=== PATIENT | male | born 1950 | race African-American/Black ===

== ENCOUNTER 2017-07-14 13:29 | Emergency (ER) | payer BC, MEDICAID ==
[~2017-07-14] VITALS: Ht 180.3 cm; Wt 90.0 kg
[2017-07-14] MEDS ORDERED: TACR.5 PO (13:51)
[2017-07-14] MEDS ORDERED: ATOR40TA28 PO (13:51)
[2017-07-14] MEDS ORDERED: HYDR-2924 PO (13:51)
[2017-07-14] MEDS ORDERED: ASPI81 PO (13:51)
[2017-07-14] MEDS ORDERED: TADA5TAB3 PO (13:51)
[2017-07-14] MEDS ORDERED: ENTE0.5T4 PO (13:51)
[2017-07-14] MEDS ORDERED: LOSA50TA37 PO (13:51)
[2017-07-14] MEDS ORDERED: FERR-89 PO (13:51)
[2017-07-14] MEDS ORDERED: URSO300C4 PO (13:51)
[2017-07-14] MEDS ORDERED: FURO40 PO (13:51)
[2017-07-14] MEDS ORDERED: MYCO250C7 PO (13:51)
[2017-07-14] MEDS ORDERED: ISOS60TA4 PO (13:51)
[2017-07-14] MEDS ORDERED: LISI-660 PO (13:51)
[2017-07-14] MEDS ORDERED: SIRO1 PO (13:51)
[2017-07-14] MEDS ORDERED: AMLO-512 PO (13:51)
[2017-07-14 16:36] VITALS: BP 191/85
== END 2017-07-14 17:00 | disposition home or self-care (01) ==
LOC: EMS 13:31
DX: I10 Essential (primary) hypertension (principal)
CPT/HCPCS: 93005; 99283

== ENCOUNTER 2018-05-17 10:05 | Emergency (ER) | payer BC, MEDICAID ==
[~2018-05-17] VITALS: Ht 180.3 cm; Wt 81.0 kg
[~2018-05-17 10:05] MED LIST: AMLO-512 PO; ASPI81 PO; ATOR40TA28 PO; ENTE0.5T4 PO; FERR-89 PO; FURO40 PO; HYDR-2924 PO; ISOS60TA4 PO; LISI-660 PO; LOSA50TA64 PO; MYCO250C7 PO; SIRO1 PO; TACR.5 PO; TADA5TAB3 PO; URSO300C4 PO
[2018-05-17 10:29] LABS: GLUCOSE,POINT OF CARE 84 MG/DL (70-110)
[2018-05-17 12:16] LABS: BASOPHILS % (AUTO) 0.8 % (0.0-2.0); HEMATOCRIT 33.9 % (41-53); HEMOGLOBIN 10.6 g/dL (13.5-17.5); LYMPHOCYTES # (AUTO) 1.4 K/uL (1.0-4.8); LYMPHOCYTES % (AUTO) 26.3 % (22.0-44.0); MEAN CORPUSCULAR HEMOGLOBIN 25.2 pg (26.0-34.0); MEAN CORPUSCULAR HGB CONC 31.1 G/dL (31.0-37.0); MEAN CORPUSCULAR VOLUME 81 fL (80-100); MONOCYTES # (AUTO) 0.4 K/uL (0.1-1.0); MONOCYTES % (AUTO) 8.5 % (2.0-9.0); NEUTROPHILS # (AUTO) 3.2 K/uL (1.8-7.7); NEUTROPHILS % (AUTO) 62.4 % (40.0-70.0); PLATELET COUNT (AUTO) 140 K/uL (150-450); RED BLOOD CELL COUNT(AUTO) 4.19 MIL/uL (4.50-5.90); RED CELL DISTRIBUTION WIDTH 15.4 % (11.5-14.5)
[2018-05-17] MEDS ORDERED: KETOROLAC TROMETHAMINE 30 MG/ML VIAL IM ONE (12:45)
[2018-05-17] MEDS ORDERED: TraMADol HCL 50 MG TABLET PO ONE (13:45)
[2018-05-17 14:30] VITALS: BP 142/88
== END 2018-05-17 14:33 | disposition home or self-care (01) ==
LOC: EMS 10:06
DX: S93.402A Sprain of unspecified ligament of left ankle, initial encounter (principal); M19.071 Primary osteoarthritis, right ankle and foot; I10 Essential (primary) hypertension; E78.00 Pure hypercholesterolemia, unspecified; Z79.899 Other long term (current) drug therapy; X58.XXXA Exposure to other specified factors, initial encounter; Y93.89 Activity, other specified; Y92.89 Other specified places as the place of occurrence of the external cause; Y99.8 Other external cause status
CPT/HCPCS: 29515; 36415; 73610; 73630; 82962; 84550; 85025; 96372; 99284; J1885

== ENCOUNTER 2018-09-14 08:48 | Emergency (ER) | payer BC, MEDICAID ==
[~2018-09-14] VITALS: Ht 180.3 cm; Wt 86.4 kg
[~2018-09-14 08:48] MED LIST changes: -ASPI81 PO
[2018-09-14 08:57] VITALS: BP 141/75
[2018-09-14] MEDS ORDERED: VITA1CAP PO (09:07)
== END 2018-09-14 10:03 | disposition left against medical advice (07) ==
LOC: EMS 08:48
DX: Z53.21 Procedure and treatment not carried out due to patient leaving prior to being seen by health care provider (principal)

== ENCOUNTER 2018-09-14 13:08 | Emergency (ER) | payer BC, MEDICAID ==
[~2018-09-14] VITALS: Ht 180.3 cm; Wt 86.4 kg
[~2018-09-14 13:08] MED LIST changes: +VITA1CAP PO
[2018-09-14] MEDS ORDERED: LIDOCAINE 2% VISCOUS 15 ML SOLUTION UDCUP PO ONE (14:00)
[2018-09-14] MEDS ORDERED: ACETAMINOPHEN 325 MG TABLET PO ONE (14:00)
[2018-09-14 15:02] VITALS: BP 126/69
== END 2018-09-14 15:06 | disposition home or self-care (01) ==
LOC: EMS 13:09
DX: J02.9 Acute pharyngitis, unspecified (principal); I12.9 Hypertensive chronic kidney disease with stage 1 through stage 4 chronic kidney disease, or unspecified chronic kidney disease; N18.9 Chronic kidney disease, unspecified; Z94.0 Kidney transplant status; Z79.899 Other long term (current) drug therapy
CPT/HCPCS: 87430

== ENCOUNTER 2019-10-24 20:42 | Emergency (ER) | payer OTHER ==
[~2019-10-24] VITALS: Ht 180.3 cm; Wt 90.9 kg
[~2019-10-24 20:42] MED LIST changes: -AMLO-512 PO; +AMLO10TA7 PO; -FERR-89 PO; -ISOS60TA4 PO; +LOSA50TA37 PO; -LOSA50TA64 PO; +MYCO250C27 PO; -MYCO250C7 PO
[2019-10-25] MEDS ORDERED: ACETAMINOPHEN 500 MG TABLET PO ONE (02:00)
[2019-10-25] MEDS ORDERED: IBUPROFEN 400 MG TABLET PO ONE (02:00)
[2019-10-25] MEDS ORDERED: CEPHALEXIN MONOHYDRATE 500 MG CAPSULE PO ONE (04:15)
[2019-10-25 04:22] VITALS: BP 138/80
== END 2019-10-25 04:23 | disposition home or self-care (01) ==
LOC: EMS 20:43
DX: L03.032 Cellulitis of left toe (principal); I12.9 Hypertensive chronic kidney disease with stage 1 through stage 4 chronic kidney disease, or unspecified chronic kidney disease; N18.9 Chronic kidney disease, unspecified; E78.00 Pure hypercholesterolemia, unspecified; Z91.040 Latex allergy status

== ENCOUNTER 2019-10-27 16:30 | Emergency (ER) | payer OTHER ==
[~2019-10-27] VITALS: Ht 180.3 cm; Wt 90.9 kg
[~2019-10-27 16:30] MED LIST changes: -LISI-660 PO; -MYCO250C27 PO
[2019-10-27] MEDS ORDERED: COLCHICINE 0.6 MG TABLET PO ONE (17:15)
[2019-10-27] MEDS ORDERED: ACETAMINOPHEN 500 MG TABLET PO ONE (17:15)
[2019-10-27] MEDS ORDERED: IBUPROFEN 600 MG TABLET PO ONE (17:15)
[2019-10-27] MEDS ORDERED: TADA20TA43 PO (17:19)
[2019-10-27] MEDS ORDERED: ISOS60TA4 PO (17:19)
[2019-10-27] MEDS ORDERED: SIRO0.5T3 PO (17:19)
[2019-10-27 19:00] VITALS: BP 154/83
== END 2019-10-27 18:50 | disposition home or self-care (01) ==
LOC: EMS 16:30
DX: M10.9 Gout, unspecified (principal); I10 Essential (primary) hypertension; E78.00 Pure hypercholesterolemia, unspecified; Z79.899 Other long term (current) drug therapy

== ENCOUNTER 2020-12-29 21:01 | Emergency (ER) | payer MEDICARE, MEDICAID ==
[~2020-12-29] VITALS: Ht 180.3 cm; Wt 94.5 kg
[~2020-12-29 21:01] MED LIST changes: +AMLO-258 PO; -AMLO10TA7 PO; +ENTE0.5T12 PO; -ENTE0.5T4 PO; -HYDR-2924 PO; +HYDR50TA36 PO; +ISOS60TA77 PO; +SIRO0.5T3 PO; -SIRO1 PO; -TACR.5 PO; +TACR0.5C21 PO; +TADA20TA43 PO; -TADA5TAB3 PO
[2020-12-29 21:16] VITALS: BP 150/85
[2020-12-29 21:56] LABS: APPEARANCE,URINE TURBID (CLEAR); BILIRUBIN,URINE NEGATIVE (NEGATIVE); GLUCOSE, URINE (UA) NEGATIVE (NEGATIVE); KETONES,URINE NEGATIVE (NEGATIVE); LEUKOCYTE ESTERASE ,URINE NEGATIVE (NEGATIVE); NITRATE,URINE NEGATIVE (NEGATIVE); OCCULT BLOOD,URINE NEGATIVE (NEGATIVE); PROTEIN,URINE SEE CONFIRM (NEGATIVE); UROBILINOGEN,URINE 0.2 mg/dL (<=1.0)
[2020-12-29 22:13] LABS: SULFOSALICYLIC ACID,URINE 2+ (Negative)
[2020-12-29 22:20] LABS: SQUAMOUS EPITHELIAL CELL,UR Rare /LPF (None Seen)
[2020-12-29 22:21] LABS: BACTERIA,URINE None Seen /HPF (None Seen); RBC,URINE None Seen /HPF (0-2); WBC,URINE 0-2 /HPF (0-5)
== END 2020-12-29 23:35 | disposition left against medical advice (07) ==
LOC: EMS 21:03
DX: R20.0 Anesthesia of skin (principal); Z53.21 Procedure and treatment not carried out due to patient leaving prior to being seen by health care provider
CPT/HCPCS: 81001; 81002; 81003

== ENCOUNTER → 2021-03-02 | Emergency (ER) | payer MEDICARE, MEDICAID ==
[~2021-03-02] VITALS: Ht 180.3 cm; Wt 94.5 kg
[~2021-03-02] MED LIST changes: +HYDROmorphone 2 MG/ML VIAL IVP ONE; +HYDROmorphone 2 MG/ML VIAL IVP PRN; +LORazepam 2 MG/ML VIAL IVP ONE; +MORPHINE SULFATE 4 MG/ML SYRINGE IVP ONE; +ONDANSETRON HCL 4 MG/2 ML VIAL IVP ONE; +PHENAZOPYRIDINE HCL 100 MG TABLET PO ONE; +SODIUM CHLORIDE 0.9% 1,000 ML IV ONE; +TACROLIMUS 0.5 MG CAPSULE PO ONE
[2021-03-02 18:32] LABS: BASOPHILS % (AUTO) 1.2 % (0.0-2.0); EOSINOPHILS % (AUTO) 1.1 % (1.0-6.0); HEMATOCRIT 34.1 % (41-53); HEMOGLOBIN 10.9 g/dL (13.5-17.5); LYMPHOCYTES # (AUTO) 2.8 K/uL (1.0-4.8); LYMPHOCYTES % (AUTO) 28.9 % (22.0-44.0); MEAN CORPUSCULAR HEMOGLOBIN 27.4 pg (26.0-34.0); MEAN CORPUSCULAR HGB CONC 31.8 G/dL (31.0-37.0); MEAN CORPUSCULAR VOLUME 86 fL (80-100); MONOCYTES # (AUTO) 0.8 K/uL (0.1-1.0); MONOCYTES % (AUTO) 7.7 % (2.0-9.0); NEUTROPHILS % (AUTO) 61.1 % (40.0-70.0); PLATELET COUNT (AUTO) 174 K/uL (150-450); RED BLOOD CELL COUNT(AUTO) 3.96 MIL/uL (4.50-5.90); RED CELL DISTRIBUTION WIDTH 14.6 % (11.5-14.5)
[2021-03-02 18:40] LABS: CALCIUM, TOTAL 8.9 mg/dL (8.8-10.5); POTASSIUM 3.9 mmol/L (3.5-5.1)
[2021-03-02 18:44] LABS: PROTHROMBIN TIME 10.6 SEC (9.4-11.6)
[2021-03-02 18:47] LABS: ALBUMIN 3.7 g/dL (3.4-5.0); BILIRUBIN,TOTAL 0.4 mg/dL (0.1-1.0); TOTAL PROTEIN, SERUM 7.5 g/dL (6.4-8.2)
[2021-03-02 21:30] LABS: COVID AG,FIA SOURCE NASOPHARYNGEAL
[2021-03-03] MEDS: HYDROmorphone 2 MG/ML VIAL IVP PRN ×4 (06:41→21:08)
[2021-03-03 07:32] LABS: HEMOGLOBIN 10.3 g/dL (13.5-17.5)
[2021-03-03 07:45] LABS: CALCIUM, TOTAL 9.1 mg/dL (8.8-10.5); CREATININE 2.87 mg/dL (0.60-1.30); POTASSIUM 4.1 mmol/L (3.5-5.1)
[2021-03-03 07:55] LABS: ALBUMIN 3.6 g/dL (3.4-5.0); BILIRUBIN,TOTAL 0.6 mg/dL (0.1-1.0); TOTAL PROTEIN, SERUM 7.3 g/dL (6.4-8.2)
[2021-03-03 21:16] VITALS: BP 120/84
== END | disposition home or self-care (01) ==
LOC: EMS 17:36
DX: N17.9 Acute kidney failure, unspecified (principal); E78.00 Pure hypercholesterolemia, unspecified; N32.9 Bladder disorder, unspecified; R31.9 Hematuria, unspecified; I12.9 Hypertensive chronic kidney disease with stage 1 through stage 4 chronic kidney disease, or unspecified chronic kidney disease; N18.9 Chronic kidney disease, unspecified; N40.0 Benign prostatic hyperplasia without lower urinary tract symptoms; B19.20 Unspecified viral hepatitis C without hepatic coma; G47.33 Obstructive sleep apnea (adult) (pediatric); Z94.4 Liver transplant status; Z20.822 Contact with and (suspected) exposure to COVID-19
CPT/HCPCS: 36415; 74176; 76770; 80053; 85014; 85018; 85025; 85610; 87426; 96361; 96374; 96375; 96376; 99291; J2060; J2270; J2405; J7030; 99284; J1170

== ENCOUNTER 2023-11-27 13:49 | Emergency (ER) | payer MEDICARE, OTHER ==
[~2023-11-27] VITALS: Ht 180.3 cm; Wt 95.5 kg
[~2023-11-27 13:49] MED LIST changes: -HYDROmorphone 2 MG/ML VIAL IVP ONE; -HYDROmorphone 2 MG/ML VIAL IVP PRN; -LORazepam 2 MG/ML VIAL IVP ONE; +LOSA-382 PO; -LOSA50TA37 PO; -MORPHINE SULFATE 4 MG/ML SYRINGE IVP ONE; -ONDANSETRON HCL 4 MG/2 ML VIAL IVP ONE; -PHENAZOPYRIDINE HCL 100 MG TABLET PO ONE; -SODIUM CHLORIDE 0.9% 1,000 ML IV ONE; -TACROLIMUS 0.5 MG CAPSULE PO ONE
[2023-11-27 14:03] LABS: COVID AG,FIA SOURCE NASAL SWAB
[2023-11-27 14:21] VITALS: TEMP 102.3
[2023-11-27 14:35] LABS: INFLUENZA TYPE A NEGATIVE FOR TYPE A (NEGATIVE); INFLUENZA TYPE B NEGATIVE FOR TYPE B (NEGATIVE)
[2023-11-27 14:39] LABS: SARS-COV2 (COVID) ANTIGEN,FIA Positive (Negative)
[2023-11-27 16:00] VITALS: BP 135/76; PULSE 88; RESP 18
[2023-11-27] MEDS: ACETAMINOPHEN 325 MG TABLET PO ONE (17:36)
== END 2023-11-27 18:19 | disposition home or self-care (01) ==
LOC: EMS 13:49
DX: U07.1 COVID-19 (principal); R50.9 Fever, unspecified; R05.9 Cough, unspecified; I12.9 Hypertensive chronic kidney disease with stage 1 through stage 4 chronic kidney disease, or unspecified chronic kidney disease; N18.9 Chronic kidney disease, unspecified; Z79.899 Other long term (current) drug therapy
CPT/HCPCS: 87804; 93005; 99283

== ENCOUNTER 2024-04-21 17:03 | Inpatient (IN) | payer MEDICARE, MEDICAID ==
[~2024-04-21] VITALS: Ht 180.3 cm; Wt 82.7 kg
[~2024-04-21 17:03] MED LIST changes: +BLOO-140; +FINA5TAB41 PO; -FURO40 PO; -HYDR50TA36 PO; +INSLAN SQ; -ISOS60TA77 PO; +LANC-893 TP; -LOSA-382 PO; +LOSA100T59 PO; +METO-408 PO; -SIRO0.5T3 PO; +SYRI-590 SQ; -TACR0.5C21 PO; +TACR1CAP12 PO; +TAMS0.4C94 PO; +[UNRECOGNIZED DRUG - CODE]; +[UNRECOGNIZED DRUG - CODE] PO; +[UNRECOGNIZED DRUG - CODE] TP
[2024-04-21 17:59] LABS: BASOPHILS % (AUTO) 1.3 % (0.0-2.0); EOSINOPHILS % (AUTO) 5.7 % (1.0-6.0); HEMATOCRIT 37.4 % (41-53); LYMPHOCYTES # (AUTO) 2.3 K/uL (1.0-4.8); MEAN CORPUSCULAR HEMOGLOBIN 28.4 pg (26.0-34.0); MEAN CORPUSCULAR HGB CONC 32.1 G/dL (31.0-37.0); MEAN CORPUSCULAR VOLUME 88 fL (80-100); MONOCYTES # (AUTO) 0.7 K/uL (0.1-1.0); MONOCYTES % (AUTO) 10.7 % (2.0-9.0); NEUTROPHILS # (AUTO) 3.2 K/uL (1.8-7.7); NEUTROPHILS % (AUTO) 48.3 % (40.0-70.0); PLATELET COUNT (AUTO) 182 K/uL (150-450); RED BLOOD CELL COUNT(AUTO) 4.24 MIL/uL (4.50-5.90); RED CELL DISTRIBUTION WIDTH 14.4 % (11.5-14.5); WHITE BLOOD COUNT (AUTO) 6.7 K/uL (4.5-11.0)
[2024-04-21 18:17] LABS: CALCIUM, TOTAL 9.9 mg/dL (8.8-10.5); CREATININE 2.85 mg/dL (0.60-1.30); MAGNESIUM 2.4 mg/dL (1.80-2.40); POTASSIUM 4.1 mmol/L (3.5-5.1)
[2024-04-21 18:28] LABS: COVID AG,FIA SOURCE NASAL SWAB
[2024-04-21 18:37] LABS: TROPONIN I-HIGH SENSITIVITY 219 ng/L (<76)
[2024-04-21 18:48] LABS: SARS-COV2 (COVID) ANTIGEN,FIA Negative (Negative)
[2024-04-21 18:50] LABS: INFLUENZA TYPE A NEGATIVE FOR TYPE A (NEGATIVE); INFLUENZA TYPE B POSITIVE FOR TYPE B (NEGATIVE)
[2024-04-21 19:56] LABS: TROPONIN I-HIGH SENSITIVITY 247 ng/L (<76)
[2024-04-21] MEDS ORDERED: DEXTROSE 50%-WATER 25 GM/50 ML SYRINGE IVP PRN (21:00)
[2024-04-21] MEDS: DOCUSATE SODIUM 100 MG CAPSULE PO SCH (21:14)
[2024-04-21 22:36] LABS: APPEARANCE,URINE CLEAR (CLEAR); BILIRUBIN,URINE NEGATIVE (NEGATIVE); COLOR,URINE LIGHT YELLOW (YELLOW); GLUCOSE, URINE (UA) 300-500 mg/dL (NEGATIVE); KETONES,URINE NEGATIVE (NEGATIVE); LEUKOCYTE ESTERASE ,URINE NEGATIVE (NEGATIVE); NITRATE,URINE NEGATIVE (NEGATIVE); OCCULT BLOOD,URINE NEGATIVE (NEGATIVE); PH,URINE 5.5 (5.0-8.0); PROTEIN,URINE 100-200,SEE CONFIRM mg/dL (NEGATIVE); SPECIFIC GRAVITIY, URINE 1.014 (1.003-1.030); UROBILINOGEN,URINE <=1.0 mg/dL (<=1.0)
[2024-04-21] MEDS: OxyCODONE HCL/ACETAMINOPHEN 5-325 MG TABLET PO PRN (22:58)
[2024-04-21] MEDS: INSULIN LISPRO 100 UNITS/ML SQ PRN (22:58)
[2024-04-21 23:19] VITALS: BP 139/72; PULSE 61; RESP 18; TEMP 98.1; O2SAT 99
[2024-04-21 23:20] LABS: BACTERIA,URINE None Seen /HPF (None Seen); RBC,URINE None Seen /HPF (0-2); SULFOSALICYLIC ACID,URINE 2+ (Negative); WBC,URINE None Seen /HPF (0-5)
[2024-04-21 23:21] LABS: SQUAMOUS EPITHELIAL CELL,UR Few /LPF (None Seen)
[2024-04-22] MEDS: TACROLIMUS 1 MG CAPSULE PO SCH (00:04)
[2024-04-22] MEDS: HEPARIN SODIUM,PORCINE 5,000 UNITS/ML VIAL SQ SCH (00:11)
[2024-04-22 04:42] VITALS: BP 142/71; PULSE 58; RESP 18; TEMP 97.8; O2SAT 98
[2024-04-22 08:06] VITALS: BP 147/72; PULSE 46; RESP 18; TEMP 97.8; O2SAT 100
[2024-04-22] MEDS: PredniSONE 5 MG TABLET PO SCH (09:57)
[2024-04-22] MEDS: AmLODIPine BESYLATE 5 MG TABLET PO SCH (09:57)
[2024-04-22] MEDS: FAMOTIDINE 20 MG TABLET PO SCH (09:57)
[2024-04-22 10:05] VITALS: PULSE 58
[2024-04-22 12:25] LABS: GLUCOMETER DEV NAME(LOC) 6S.1D; GLUCOSE,POINT OF CARE 212 MG/DL (70-110)
[2024-04-22 16:13] VITALS: BP 153/79; PULSE 68; RESP 18; TEMP 97.9; O2SAT 100
[2024-04-22 19:47] VITALS: BP 133/65; PULSE 56; RESP 18; TEMP 98.3; O2SAT 99
[2024-04-22] MEDS: ACETAMINOPHEN 325 MG TABLET PO PRN (19:48)
[2024-04-23 04:51] VITALS: BP 156/88; PULSE 60; RESP 18; TEMP 98; O2SAT 99
[2024-04-23 08:35] VITALS: BP 166/94; PULSE 54; RESP 16; TEMP 98.1; O2SAT 100
[2024-04-23 15:28] LABS: BASOPHILS % (AUTO) 1.3 % (0.0-2.0); HEMATOCRIT 33.7 % (41-53); HEMOGLOBIN 10.9 g/dL (13.5-17.5); LYMPHOCYTES # (AUTO) 1.2 K/uL (1.0-4.8); LYMPHOCYTES % (AUTO) 24.5 % (22.0-44.0); MEAN CORPUSCULAR HEMOGLOBIN 28.5 pg (26.0-34.0); MEAN CORPUSCULAR HGB CONC 32.5 G/dL (31.0-37.0); MEAN CORPUSCULAR VOLUME 88 fL (80-100); MONOCYTES # (AUTO) 0.3 K/uL (0.1-1.0); MONOCYTES % (AUTO) 7.3 % (2.0-9.0); NEUTROPHILS # (AUTO) 3.1 K/uL (1.8-7.7); NEUTROPHILS % (AUTO) 64.9 % (40.0-70.0); PLATELET COUNT (AUTO) 151 K/uL (150-450); RED BLOOD CELL COUNT(AUTO) 3.84 MIL/uL (4.50-5.90); WHITE BLOOD COUNT (AUTO) 4.7 K/uL (4.5-11.0)
[2024-04-23] MEDS ORDERED: FINASTERIDE 5 MG TABLET PO SCH (15:30)
[2024-04-23 15:36] LABS: CALCIUM, TOTAL 9.4 mg/dL (8.8-10.5); CREATININE 2.26 mg/dL (0.60-1.30); POTASSIUM 4.3 mmol/L (3.5-5.1)
[2024-04-23] MEDS ORDERED: CELE-146 PO (15:41)
[2024-04-23] MEDS ORDERED: NIFE-79 PO (15:41)
[2024-04-23] MEDS ORDERED: URSO300C4 PO ×2 (15:41)
[2024-04-23] MEDS ORDERED: FERR325T23 PO (15:41)
[2024-04-23] MEDS ORDERED: HYDR50TA36 PO (15:41)
[2024-04-23] MEDS ORDERED: AMLO5TAB66 PO (15:41)
[2024-04-23] MEDS ORDERED: TAMS0.4C94 PO (15:41)
[2024-04-23] MEDS ORDERED: GABA-1181 PO (15:41)
[2024-04-23] MEDS ORDERED: TACR1CAP6 PO (15:41)
[2024-04-23] MEDS ORDERED: FINA5TAB41 PO (15:41)
[2024-04-23] MEDS ORDERED: ATOR40TA71 PO (15:41)
[2024-04-23] MEDS ORDERED: SEMA3TAB4 PO (15:41)
[2024-04-23 15:50] LABS: ALBUMIN 2.8 g/dL (3.4-5.0); BILIRUBIN,TOTAL 0.3 mg/dL (0.1-1.0); THYROID STIMULATING HORMONE 1.59 uIU/mL (0.36-3.74); TOTAL PROTEIN, SERUM 6.8 g/dL (6.4-8.2)
[2024-04-23 15:51] LABS: TROPONIN I-HIGH SENSITIVITY 239 ng/L (<76)
[2024-04-23] MEDS: METOPROLOL SUCCINATE 25 MG ER TABLET PO SCH (16:45)
[2024-04-23] MEDS: LOSARTAN POTASSIUM 50 MG TABLET PO SCH (16:46)
[2024-04-23] MEDS: OSELTAMIVIR PHOSPHATE 30 MG CAPSULE PO ONE (16:46)
[2024-04-23] MEDS: HydrALAZINE HCL 50 MG TABLET PO SCH (16:46)
[2024-04-23 17:00] VITALS: BP 154/96; PULSE 57; RESP 18; TEMP 98; O2SAT 98
[2024-04-23 20:43] VITALS: BP 138/73; PULSE 60; RESP 18; TEMP 98; O2SAT 99
[2024-04-23] MEDS: ATORVASTATIN CALCIUM 40 MG TABLET PO SCH (21:01)
[2024-04-23] MEDS: URSODIOL 300 MG CAPSULE PO SCH (21:01)
[2024-04-23] MEDS: TAMSULOSIN HCL 0.4 MG CAPSULE PO SCH (21:01)
[2024-04-23] MEDS: TACROLIMUS 1 MG CAPSULE PO SCH (21:02)
[2024-04-24 02:52] VITALS: BP 147/84; PULSE 58; RESP 20; TEMP 97.9; O2SAT 98
[2024-04-24 07:34] LABS: CALCIUM, TOTAL 9.7 mg/dL (8.8-10.5); CREATININE 2.17 mg/dL (0.60-1.30); MAGNESIUM 2.1 mg/dL (1.80-2.40); POTASSIUM 3.8 mmol/L (3.5-5.1)
[2024-04-24 08:39] VITALS: BP 156/77; PULSE 61; RESP 20; TEMP 97.8; O2SAT 99
[2024-04-24] MEDS: AmLODIPine BESYLATE 10 MG TABLET PO SCH (09:07)
[2024-04-24] MEDS: OSELTAMIVIR PHOSPHATE 30 MG CAPSULE PO SCH (09:08)
[2024-04-24] MEDS: URSODIOL 300 MG CAPSULE PO SCH (09:09)
[2024-04-24] MEDS: FINASTERIDE 5 MG TABLET PO SCH (09:10)
[2024-04-24] MEDS ORDERED: ENTECAVIR 0.5 MG TABLET PO SCH (12:00)
[2024-04-24] MEDS: ENTECAVIR 0.5 MG TABLET PO SCH (12:08)
[2024-04-24 12:15] VITALS: BP 132/75; PULSE 68; RESP 20; TEMP 98; O2SAT 98
[2024-04-24 15:52] VITALS: BP 147/73; PULSE 59; RESP 20; TEMP 97.7; O2SAT 99
[2024-04-24 16:13] VITALS: BP 147/73; PULSE 59; RESP 20; TEMP 97.7; O2SAT 99
[2024-04-25] MEDS ORDERED: FERROUS SULFATE 325 MG EC TABLET PO SCH (09:00)
[2024-04-25 12:11] LABS: GLUCOMETER DEV NAME(LOC) 4E.2; GLUCOSE,POINT OF CARE 205 MG/DL (70-110)
[2024-04-25 12:12] LABS: GLUCOMETER DEV NAME(LOC) 6S.1D; GLUCOSE,POINT OF CARE 166 MG/DL (70-110)
[2024-04-25 12:12] LABS: GLUCOMETER DEV NAME(LOC) 4E.2; GLUCOSE,POINT OF CARE 201 MG/DL (70-110)
[2024-04-25 12:12] LABS: GLUCOMETER DEV NAME(LOC) 4E.2; GLUCOSE,POINT OF CARE 262 MG/DL (70-110)
[2024-04-25 12:12] LABS: GLUCOMETER DEV NAME(LOC) 6S.1D; GLUCOSE,POINT OF CARE 217 MG/DL (70-110)
[2024-04-25 12:12] LABS: GLUCOMETER DEV NAME(LOC) 4E.2; GLUCOSE,POINT OF CARE 244 MG/DL (70-110)
[2024-04-25 12:12] LABS: GLUCOMETER DEV NAME(LOC) 6S.1D; GLUCOSE,POINT OF CARE 328 MG/DL (70-110)
[2024-04-25 12:12] LABS: GLUCOMETER DEV NAME(LOC) 4E.2; GLUCOSE,POINT OF CARE 212 MG/DL (70-110)
[2024-04-25 12:12] LABS: GLUCOMETER DEV NAME(LOC) 4E.2; GLUCOSE,POINT OF CARE 231 MG/DL (70-110)
[2024-04-25 12:12] LABS: GLUCOMETER DEV NAME(LOC) 4E.2; GLUCOSE,POINT OF CARE 170 MG/DL (70-110)
== END 2024-04-24 18:00 | DRG 74 ==
LOC: EMS 17:14 → EDH 20:50 → 4E 23:26
PROVIDERS: ADMIT Internal Medicine; ATTEND Internal Medicine
DX: E11.40 Type 2 diabetes mellitus with diabetic neuropathy, unspecified (principal); D84.821 Immunodeficiency due to drugs; Z94.4 Liver transplant status; J10.1 Influenza due to other identified influenza virus with other respiratory manifestations; Z20.822 Contact with and (suspected) exposure to COVID-19; N18.30 Chronic kidney disease, stage 3 unspecified; I12.9 Hypertensive chronic kidney disease with stage 1 through stage 4 chronic kidney disease, or unspecified chronic kidney disease; D63.1 Anemia in chronic kidney disease; E11.22 Type 2 diabetes mellitus with diabetic chronic kidney disease; R80.9 Proteinuria, unspecified; R53.81 Other malaise; K72.90 Hepatic failure, unspecified without coma; T50.995A Adverse effect of other drugs, medicaments and biological substances, initial encounter; N40.0 Benign prostatic hyperplasia without lower urinary tract symptoms; Z79.621 Long term (current) use of calcineurin inhibitor; Z83.3 Family history of diabetes mellitus; Z79.4 Long term (current) use of insulin
CPT/HCPCS: 71045; 76770; 80048; 80053; 80197; 81001; 81002; 82962; 83735; 84443; 84484; 85025; 87804; 93005; 97110; 97116; 97162; 97530; 99285; G0378; J1644; J1815; J7507; 36415-L1; 36415-TC

== ENCOUNTER → 2024-07-27 | Emergency (ER) | payer MEDICARE, MEDICAID ==
[~2024-07-27] VITALS: Ht 180.3 cm; Wt 81.4 kg
[~2024-07-27] MED LIST changes: -AMLO-258 PO; +AMLO5TAB66 PO; -ATOR40TA28 PO; +ATOR40TA71 PO; +CELE-146 PO; +FERR325T23 PO; +GABA-1181 PO; +HYDR50TA36 PO; -INSLAN SQ; +NIFE-79 PO; +SEMA3TAB4 PO; -TACR1CAP12 PO; +TACR1CAP6 PO; -TADA20TA43 PO; -VITA1CAP PO; -[UNRECOGNIZED DRUG - CODE] PO
[2024-07-27 22:17] VITALS: BP 127/70; PULSE 77; RESP 18; TEMP 99.8; O2SAT 99
== END | disposition home or self-care (01) ==
LOC: EMS 21:57
DX: R53.1 Weakness (principal); E11.22 Type 2 diabetes mellitus with diabetic chronic kidney disease; E78.00 Pure hypercholesterolemia, unspecified; G47.33 Obstructive sleep apnea (adult) (pediatric); I12.9 Hypertensive chronic kidney disease with stage 1 through stage 4 chronic kidney disease, or unspecified chronic kidney disease; N18.9 Chronic kidney disease, unspecified; N40.0 Benign prostatic hyperplasia without lower urinary tract symptoms; Z79.1 Long term (current) use of non-steroidal anti-inflammatories (NSAID); Z79.4 Long term (current) use of insulin; Z79.899 Other long term (current) drug therapy; Z86.19 Personal history of other infectious and parasitic diseases; Z94.4 Liver transplant status
CPT/HCPCS: 99281; Z7502

== ENCOUNTER 2024-11-28 13:50 | Emergency (ER) | payer MEDICARE, MEDICAID ==
[~2024-11-28] VITALS: Ht 180.3 cm; Wt 81.4 kg
[2024-11-28 13:55] VITALS: BP 105/67; PULSE 63; RESP 18; TEMP 98.4; O2SAT 97
[2024-11-28 14:33] LABS: APPEARANCE,URINE HAZY (CLEAR); GLUCOSE, URINE (UA) >=1000 mg/dL (NEGATIVE); LEUKOCYTE ESTERASE ,URINE NEGATIVE (NEGATIVE); NITRATE,URINE NEGATIVE (NEGATIVE); OCCULT BLOOD,URINE LARGE (NEGATIVE); SPECIFIC GRAVITIY, URINE 1.019 (1.003-1.030)
[2024-11-28 14:38] LABS: SULFOSALICYLIC ACID,URINE 3+ (Negative)
[2024-11-28 16:08] LABS: PLATELET COUNT (AUTO) 151 K/uL (150-450); RED BLOOD CELL COUNT(AUTO) 4.58 MIL/uL (4.50-5.90); RED CELL DISTRIBUTION WIDTH 15.0 % (11.5-14.5); WHITE BLOOD COUNT (AUTO) 5.8 K/uL (4.5-11.0)
[2024-11-28 16:11] LABS: CALCIUM, TOTAL 9.1 mg/dL (8.8-10.5); CREATININE 2.37 mg/dL (0.60-1.30); GLOMERULAR FILTR. RATE CALC 33.0 mL/min (>60); GLUCOSE,RANDOM 113.0 mg/dL (70-110); SODIUM SERUM 146.0 mmol/L (136-145); UREA NITROGEN, BLOOD 39.0 mg/dL (7-18)
== END 2024-11-28 16:54 | disposition home or self-care (01) ==
LOC: EMS 13:51
DX: R31.9 Hematuria, unspecified (principal); N32.9 Bladder disorder, unspecified; I12.9 Hypertensive chronic kidney disease with stage 1 through stage 4 chronic kidney disease, or unspecified chronic kidney disease; N18.9 Chronic kidney disease, unspecified; E11.22 Type 2 diabetes mellitus with diabetic chronic kidney disease; E78.00 Pure hypercholesterolemia, unspecified; N40.0 Benign prostatic hyperplasia without lower urinary tract symptoms; Z79.1 Long term (current) use of non-steroidal anti-inflammatories (NSAID); Z79.899 Other long term (current) drug therapy; Z86.19 Personal history of other infectious and parasitic diseases; Z94.4 Liver transplant status
CPT/HCPCS: 80048; 81001; 81002; 82962; 85025; 99283

== ENCOUNTER 2024-12-12 12:53 | Emergency (ER) | payer MEDICARE, MEDICAID ==
[~2024-12-12] VITALS: Ht 180.3 cm; Wt 78.2 kg
[2024-12-12 12:58] VITALS: TEMP 98.7
[2024-12-12] MEDS ORDERED: NIFE90TA72 PO (13:02)
[2024-12-12] MEDS ORDERED: HYDR100T15 PO (13:02)
[2024-12-12] MEDS ORDERED: DAPA10TA PO (13:02)
[2024-12-12] MEDS ORDERED: TROS20TA3 PO (13:02)
[2024-12-12 14:30] VITALS: BP 119/87; PULSE 95; RESP 17; O2SAT 98
== END 2024-12-12 17:14 | disposition home or self-care (01) ==
LOC: EMS 12:53
DX: T83.018A Breakdown (mechanical) of other urinary catheter, initial encounter (principal); N32.9 Bladder disorder, unspecified; E11.22 Type 2 diabetes mellitus with diabetic chronic kidney disease; E78.00 Pure hypercholesterolemia, unspecified; I12.9 Hypertensive chronic kidney disease with stage 1 through stage 4 chronic kidney disease, or unspecified chronic kidney disease; N18.9 Chronic kidney disease, unspecified; N40.0 Benign prostatic hyperplasia without lower urinary tract symptoms; Z94.4 Liver transplant status; Z86.19 Personal history of other infectious and parasitic diseases; Z79.899 Other long term (current) drug therapy; Y92.89 Other specified places as the place of occurrence of the external cause
CPT/HCPCS: 51702; 82962; 99284